=== PATIENT | male | born 1975 | race Caucasian/White ===

== ENCOUNTER 2017-01-06 12:21 | Emergency (ER) | payer BC ==
[~2017-01-06] VITALS: Ht 177.8 cm; Wt 111.4 kg
[~2017-01-06 12:21] MED LIST: CLARITIN10 MG PO; HUMALOG100 UNIT/1 SC; HUMULIN R100 UNITS/ SC; LANTUS 10100 UNITS/ SC; METOPROLOL SUCC25 MG PO; MOTRIN800 MG PO; NORCO 5/3251 TABLET PO; ZOFRAN ODT4 MG PO; ZYRTEC10 M3 PO
[2017-01-06] MEDS ORDERED: BENADRYL25 MG PO (15:59)
[2017-01-06] MEDS ORDERED: REGLAN10 MG PO (15:59)
[2017-01-06] MEDS ORDERED: NAPROSYN500 MG PO (15:59)
[2017-01-06] MEDS ORDERED: CLARITIN,ALAVAR10 MG PO (15:59)
[2017-01-06] MEDS ORDERED: MUCUS ER600 MG PO (16:01)
[2017-01-06 16:10] VITALS: BP 149/109
== END 2017-01-06 16:12 | disposition home or self-care (01) ==
LOC: EME 12:21
DX: H57.11 Ocular pain, right eye (principal); R51 Headache; J30.2 Other seasonal allergic rhinitis; Z87.442 Personal history of urinary calculi; E11.9 Type 2 diabetes mellitus without complications; Z79.84 Long term (current) use of oral hypoglycemic drugs; Z79.4 Long term (current) use of insulin; I10 Essential (primary) hypertension
CPT/HCPCS: 99281; 99284; J1885